=== PATIENT | female | born 1970 | race Caucasian/White ===

== ENCOUNTER 2016-12-24 21:49 | Emergency (ER) | payer OTHER ==
--- NOTE | 2016-12-24 22:04 | ED NURSING NOTES ---
Clinical Report - Nurses [facility] [address] [place] [address] 12/24/2016 21:49 Patient: RENITA GR TRIAGE Triage time 21:52 Dec 24 2016. Acuity: LEVEL 4. Chief Complaint: DRUG OVERDOSE. --21:57 Jordy Virk R.N. 21:51 12/24/16. BP: 119/52. HR: 127. RR: 22. O2 saturation: 99%. Temp: 99 F. Pain level now 0/10. --21:57 Jordy Virk R.N. Weight: 113.3 kg. Height/Length: 65 inches. BMI: 41.6. --21:56 Jordy Virk R.N. Medications Estradiol Oral (Tablet 2 mg) 1 tablet, daily. Gabapentin Oral (Tablet 600 mg) 3 tablets , at bedtime. --21:55 Jordy Virk R.N. Imitrex Oral (Tablet 100 mg), as needed. Levothyroxine Sodium Oral 125 mcg, daily. --21:55 Jordy Virk R.N. [place] Oral 300mg x2 at bedtime. Propranolol 60mg daily. Vitamin D x1 weekly. --21:55 Jordy Virk R.N. Allergies Amoxicillin. Cephalexin. Tracey. PredniSONE. Reglan. Vicoden. --21:55 Jordy Virk R.N. History Arrived by EMS. ( Pt took thc oil, she says this feels similar to a bad reaction she had to regalan in the past). No loss of consciousness. No depression, suicidal thoughts or seizure. Denies having hallucinations. 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 SOCIAL HX: Never smoker. History of drug use: marijuana. No alcohol use. --21:57 Jordy Virk R.N. PROBLEMS: Alcohol abuse. Muscle Strain, Upper Extremity. Peptic Ulcer Disease. Abdominal Pain. Seizure Disorder. Vomiting. Hypertension. Bipolar Disorder. Drug Poisoning. Suicide Attempt. Immunizations. LNMP - Last Normal Menstrual Period. Migraine Headache. Depression. --21:55 Jordy Virk R.N. ADDITIONAL SURGERIES: Ankle Surgery . Back Surgery. Breast reduction . Carpal Tunnel Surgery. Cholecystectomy. Gastric by-pass. Hysterectomy. Knee Surgery. Oophorectomy. Salpingectomy. --21:55 Jordy Virk R.N. Interventions ID and allergy band on patient. To treatment room. --21:57 Jordy Virk R.N. PHYSICAL ASSESSMENT GENERAL / NEURO / PSYCH: Alert. Oriented X 4. Appears anxious. Patient appears calm and cooperative. Speech within normal limits. RESPIRATORY: Respirations not labored. Breath sounds within normal limits. CVS: Normal sinus rhythm noted. SKIN: Skin is warm and dry. Affect appears within normal limits. --22:00 Jordy Virk R.N. NURSING PROGRESS NOTES Pulse oximeter placed on patient. Patient not gowned. Two patient identifiers checked. Call light placed in reach. Side rails up x 1. Bed placed in lowest position. Brakes of bed on. --22:00 Jordy Virk R.N. 22:05 12/24/16. BP: 136/81. --22:06 Jordy Virk R.N. 22:06 12/24/16. HR: 110. O2 saturation: 100%. --22:06 Jordy Virk R.N. DISPOSITION / DISCHARGE Departure time: 2219. Condition at departure: improved. No learning barriers present. Discharge instructions provided and reviewed with the patient and family. Patient and family verbalized understanding. Written instructions provided in Slovak. The patient was discharged by the nurse practitioner. She was discharged home and accompanied by family. She left the Emergency Department ambulatory and via private vehicle. Family member driving. ( Pt ambulated on discharge, verbalized understanding of discharge instructions and follow up care. Pt left with family as her transportation.). --22:22 Jordy Virk R.N. 22:20 12/24/16. BP: 145/110. HR: 111. RR: 20. O2 saturation: 99%. Temp: 99 F. Pain level now 5/10. --22:22 Jordy Virk R.N. Locked/Released at 12/25/2016 20:19 by Jordy Virk R.N.
--- NOTE | 2016-12-24 22:04 | ED CLINICAL REPORT ---
Clinical Report - Physicians/Mid Levels [facility] [address] [place] [address] 12/24/2016 21:49 Patient: RENITA GR Time Seen: 2150; upon arrival, initial patient contact, initial documentation, patient care assumed. Arrived- By ambulance. Historian- patient. HISTORY OF PRESENT ILLNESS Chief Complaint: INGESTION. ( marijuana oil). 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 ( using pedi ingestion t-sheet, due to no adult ingestion sheet). Initially, she did not exhibit any symptoms. Symptoms described as moderate. The patient had no treatment prior to arrival. ( took 1/10 of marijuana oil around 1930, and now feels anxious, shaky, and feels the same as when she has a panic attack). No toxic symptoms present in the ED. Recent medical care: Not recently seen/assessed. REVIEW OF SYSTEMS All systems otherwise negative, except as recorded above. PAST HISTORY See nurses notes. PROBLEMS: Alcohol abuse. Muscle Strain, Upper Extremity. Peptic Ulcer Disease. Abdominal Pain. Seizure Disorder. Vomiting. Hypertension. Bipolar Disorder. Drug Poisoning. Suicide Attempt. Immunizations. LNMP - Last Normal Menstrual Period. Migraine Headache. Depression. --21:55 Jordy Virk, R.N. ADDITIONAL SURGERIES: Ankle Surgery . Back Surgery. Breast reduction . Carpal Tunnel Surgery. Cholecystectomy. Gastric by-pass. Hysterectomy. Knee Surgery. Oophorectomy. Salpingectomy. --21:55 Jordy Virk, R.N. SOCIAL HISTORY Never smoker. History of occasional drug use: marijuana. Not exposed to second-hand smoke at home. No alcohol use. Is a local resident. FAMILY HISTORY Negative. ADDITIONAL NOTES The nursing notes have been reviewed with agreement regarding the chief complaint, HPI, ROS, PMH and patient medications and allergies. PHYSICAL EXAM Vital Signs: 12/24/2016 21:51 BP: 119/52. HR: 127. RR: 22. O2 saturation: 99%. Temp: 99 F. Have been reviewed as normal and appear to be correct. Appearance: Alert alert. Oriented X3. No acute distress. Attentive. ( anxious). Eyes: Pupils equal, round and reactive to light. Conjunctivae and eyelids normal. Neck: Neck supple. No neck mass. CVS: Normal heart rate and rhythm. Strong peripheral pulses. Heart sounds normal. Respiratory: No respiratory distress. Breath sounds normal. Back: Normal inspection. Skin: Skin warm and dry. Normal skin color. No rash. Normal skin turgor. Extremities: Normal range of motion in extremities. Extremities nontender. Extremities atraumatic. Neuro: Mental status is normal for the patient's age. No motor deficit or sensory deficit. PROGRESS AND PROCEDURES Course of Care: encouraged pt to not take or use marijuana oil anymore pt has brief erum, nothing alarming, see report for full details. Patient counseled in person regarding the patient's stable condition and diagnosis. 22:04. Differential Diagnosis: Other possible considerations: substance abuse, anxiety, panic attacks, psych. Above considerations are based on history and physical exam. Differential diagnosis was discussed with patient. Disposition: Discharged home in good and improved condition (22:04). Condition: good and stable. CLINICAL IMPRESSION Intentional ingestion of marijuana. Anxiety reaction. INSTRUCTIONS (return if worsening symptoms). Follow-up: Follow up with your doctor in about two days as needed. Call for an appointment. Summary of care provided to patient. Understanding of the discharge instructions verbalized by patient. (Electronically signed by Nicole Christian A.R.N.P. 12/24/2016 22:26)
--- NOTE | 2016-12-24 22:04 | ED CLINICAL REPORT ---
Clinical Report - Physicians/Mid Levels [facility] [address] [place] [address] 12/24/2016 21:49 Patient: RENITA GR Time Seen: 2150; upon arrival, initial patient contact, initial documentation, patient care assumed. Arrived- By ambulance. Historian- patient. HISTORY OF PRESENT ILLNESS Chief Complaint: INGESTION. ( marijuana oil). 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 ( using pedi ingestion t-sheet, due to no adult ingestion sheet). Initially, she did not exhibit any symptoms. Symptoms described as moderate. The patient had no treatment prior to arrival. ( took 1/10 of marijuana oil around 1930, and now feels anxious, shaky, and feels the same as when she has a panic attack). No toxic symptoms present in the ED. Recent medical care: Not recently seen/assessed. REVIEW OF SYSTEMS All systems otherwise negative, except as recorded above. PAST HISTORY See nurses notes. PROBLEMS: Alcohol abuse. Muscle Strain, Upper Extremity. Peptic Ulcer Disease. Abdominal Pain. Seizure Disorder. Vomiting. Hypertension. Bipolar Disorder. Drug Poisoning. Suicide Attempt. Immunizations. LNMP - Last Normal Menstrual Period. Migraine Headache. Depression. --21:55 Jordy Virk, R.N. ADDITIONAL SURGERIES: Ankle Surgery . Back Surgery. Breast reduction . Carpal Tunnel Surgery. Cholecystectomy. Gastric by-pass. Hysterectomy. Knee Surgery. Oophorectomy. Salpingectomy. --21:55 Jordy Virk, R.N. SOCIAL HISTORY Never smoker. History of occasional drug use: marijuana. Not exposed to second-hand smoke at home. No alcohol use. Is a local resident. FAMILY HISTORY Negative. ADDITIONAL NOTES The nursing notes have been reviewed with agreement regarding the chief complaint, HPI, ROS, PMH and patient medications and allergies. PHYSICAL EXAM Vital Signs: 12/24/2016 21:51 BP: 119/52. HR: 127. RR: 22. O2 saturation: 99%. Temp: 99 F. Have been reviewed as normal and appear to be correct. Appearance: Alert alert. Oriented X3. No acute distress. Attentive. ( anxious). Eyes: Pupils equal, round and reactive to light. Conjunctivae and eyelids normal. Neck: Neck supple. No neck mass. CVS: Normal heart rate and rhythm. Strong peripheral pulses. Heart sounds normal. Respiratory: No respiratory distress. Breath sounds normal. Back: Normal inspection. Skin: Skin warm and dry. Normal skin color. No rash. Normal skin turgor. Extremities: Normal range of motion in extremities. Extremities nontender. Extremities atraumatic. Neuro: Mental status is normal for the patient's age. No motor deficit or sensory deficit. PROGRESS AND PROCEDURES Course of Care: encouraged pt to not take or use marijuana oil anymore pt has brief erum, nothing alarming, see report for full details. Patient counseled in person regarding the patient's stable condition and diagnosis. 22:04. Differential Diagnosis: Other possible considerations: substance abuse, anxiety, panic attacks, psych. Above considerations are based on history and physical exam. Differential diagnosis was discussed with patient. Disposition: Discharged home in good and improved condition (22:04). Condition: good and stable. CLINICAL IMPRESSION Intentional ingestion of marijuana. Anxiety reaction. INSTRUCTIONS (return if worsening symptoms). Follow-up: Follow up with your doctor in about two days as needed. Call for an appointment. Summary of care provided to patient. Understanding of the discharge instructions verbalized by patient. (Electronically signed by Nicole Christian A.R.N.P. 12/24/2016 22:26)
--- NOTE | 2016-12-24 22:04 | ED NURSING NOTES ---
Clinical Report - Nurses [facility] [address] [place] [address] 12/24/2016 21:49 Patient: RENITA GR TRIAGE Triage time 21:52 Dec 24 2016. Acuity: LEVEL 4. Chief Complaint: DRUG OVERDOSE. --21:57 Jordy Virk R.N. 21:51 12/24/16. BP: 119/52. HR: 127. RR: 22. O2 saturation: 99%. Temp: 99 F. Pain level now 0/10. --21:57 Jordy Virk R.N. Weight: 113.3 kg. Height/Length: 65 inches. BMI: 41.6. --21:56 Jordy Virk R.N. Medications Estradiol Oral (Tablet 2 mg) 1 tablet, daily. Gabapentin Oral (Tablet 600 mg) 3 tablets , at bedtime. --21:55 Jordy Virk R.N. Imitrex Oral (Tablet 100 mg), as needed. Levothyroxine Sodium Oral 125 mcg, daily. --21:55 Jordy Virk R.N. [place] Oral 300mg x2 at bedtime. Propranolol 60mg daily. Vitamin D x1 weekly. --21:55 Jordy Virk R.N. Allergies Amoxicillin. Cephalexin. Tracey. PredniSONE. Reglan. Vicoden. --21:55 Jordy Virk R.N. History Arrived by EMS. ( Pt took thc oil, she says this feels similar to a bad reaction she had to regalan in the past). No loss of consciousness. No depression, suicidal thoughts or seizure. Denies having hallucinations. 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 SOCIAL HX: Never smoker. History of drug use: marijuana. No alcohol use. --21:57 Jordy Virk R.N. PROBLEMS: Alcohol abuse. Muscle Strain, Upper Extremity. Peptic Ulcer Disease. Abdominal Pain. Seizure Disorder. Vomiting. Hypertension. Bipolar Disorder. Drug Poisoning. Suicide Attempt. Immunizations. LNMP - Last Normal Menstrual Period. Migraine Headache. Depression. --21:55 Jordy Virk R.N. ADDITIONAL SURGERIES: Ankle Surgery . Back Surgery. Breast reduction . Carpal Tunnel Surgery. Cholecystectomy. Gastric by-pass. Hysterectomy. Knee Surgery. Oophorectomy. Salpingectomy. --21:55 Jordy Virk R.N. Interventions ID and allergy band on patient. To treatment room. --21:57 Jordy Virk R.N. PHYSICAL ASSESSMENT GENERAL / NEURO / PSYCH: Alert. Oriented X 4. Appears anxious. Patient appears calm and cooperative. Speech within normal limits. RESPIRATORY: Respirations not labored. Breath sounds within normal limits. CVS: Normal sinus rhythm noted. SKIN: Skin is warm and dry. Affect appears within normal limits. --22:00 Jordy Virk R.N. NURSING PROGRESS NOTES Pulse oximeter placed on patient. Patient not gowned. Two patient identifiers checked. Call light placed in reach. Side rails up x 1. Bed placed in lowest position. Brakes of bed on. --22:00 Jordy Virk R.N. 22:05 12/24/16. BP: 136/81. --22:06 Jordy Virk R.N. 22:06 12/24/16. HR: 110. O2 saturation: 100%. --22:06 Jordy Virk R.N. DISPOSITION / DISCHARGE Departure time: 2219. Condition at departure: improved. No learning barriers present. Discharge instructions provided and reviewed with the patient and family. Patient and family verbalized understanding. Written instructions provided in Latvian. The patient was discharged by the nurse practitioner. She was discharged home and accompanied by family. She left the Emergency Department ambulatory and via private vehicle. Family member driving. ( Pt ambulated on discharge, verbalized understanding of discharge instructions and follow up care. Pt left with family as her transportation.). --22:22 Jordy Virk R.N. 22:20 12/24/16. BP: 145/110. HR: 111. RR: 20. O2 saturation: 99%. Temp: 99 F. Pain level now 5/10. --22:22 Jordy Virk R.N. Locked/Released at 12/25/2016 20:19 by Jordy Virk R.N.
--- NOTE | 2016-12-25 20:19 | ED MAR SUMMARY ---
..... Medication Administration Record [facility] [address] [place] [address] Patient: RENITA GR Visit ID: [id number] 46y, F Weight: 113.3 kg Height/Length: 65 in BMI: 41.6 ALLERGIES: Amoxicillin, Cephalexin, Tracey, PredniSONE, Reglan, Vicoden
--- NOTE | 2016-12-25 20:19 | ED MED RECONCILIATION SUMMARY ---
Patient: RENITA GR Medication Reconciliation Report [facility] VisitID: [id number] [address] [place] [address] 46y, F Registration Date/Time: 12/24/2016 Weight: 113.3 kg Height/Length: 65 in. BMI: 41.6 ALLERGIES: Amoxicillin, Cephalexin, Tracey, PredniSONE, Reglan, Vicoden The patient's Home Medications are listed below: THE FOLLOWING MEDICATIONS NEED TO BE RECONCILED: Estradiol Oral (2 mg) 1 tablet, daily Gabapentin Oral (600 mg) 3 tablets , at bedtime Imitrex Oral (100 mg) Levothyroxine Sodium Oral 125 mcg, daily [place] Oral 300mg x2 at bedtime Propranolol 60mg daily Vitamin D x1 weekly The source(s) of the original Home Medication information: Not obtained. The following Medications were given to the patient in the Emergency Department: None. The following Medications were prescribed to the patient: None.
--- NOTE | 2016-12-25 20:19 | ED MAR SUMMARY ---
..... Medication Administration Record [facility] [address] [place] [address] Patient: RENITA GR Visit ID: [id number] 46y, F Weight: 113.3 kg Height/Length: 65 in BMI: 41.6 ALLERGIES: Amoxicillin, Cephalexin, Tracey, PredniSONE, Reglan, Vicoden
--- NOTE | 2016-12-25 20:19 | ED MED RECONCILIATION SUMMARY ---
Patient: RENITA GR Medication Reconciliation Report [facility] VisitID: [id number] [address] [place] [address] 46y, F Registration Date/Time: 12/24/2016 Weight: 113.3 kg Height/Length: 65 in. BMI: 41.6 ALLERGIES: Amoxicillin, Cephalexin, Tracey, PredniSONE, Reglan, Vicoden The patient's Home Medications are listed below: THE FOLLOWING MEDICATIONS NEED TO BE RECONCILED: Estradiol Oral (2 mg) 1 tablet, daily Gabapentin Oral (600 mg) 3 tablets , at bedtime Imitrex Oral (100 mg) Levothyroxine Sodium Oral 125 mcg, daily [place] Oral 300mg x2 at bedtime Propranolol 60mg daily Vitamin D x1 weekly The source(s) of the original Home Medication information: Not obtained. The following Medications were given to the patient in the Emergency Department: None. The following Medications were prescribed to the patient: None.
--- NOTE | 2016-12-25 20:19 | ED DISCHARGE INSTRUCTIONS ---
Patient: RENITA GR General Instructions [facility] VisitID: [id number] [place] [address] 46y, F Registration Date/Time: 12/24/2016 Intentional ingestion of marijuana. Anxiety reaction. INSTRUCTIONS (return if worsening symptoms). Follow-up: Follow up with your doctor in about two days as needed. Call for an appointment. Summary of care provided to patient. Understanding of the discharge instructions verbalized by patient. ADDITIONAL INFORMATION Overdose, Intentional (Adult: Psych Evaluation) You have been evaluated and treated for taking a drug or chemical product with the intent to harm yourself. There is no sign of a toxic effect at this time. It is not likely that any new symptoms will appear. As a safeguard, watch for new symptoms during the next 24 hours (see below). The exact symptom will depend on the type of drug or chemical taken. An intentional overdose is likely to be a sign that you are depressed, or that you are very angry with yourself or someone else. In order to reduce the risk of harming yourself, we will arrange for you to have a psychiatric evaluation. Home Care: If LIQUID CHARCOAL was given to neutralize what was swallowed, it will cause a black color to the stools for 1-2 days. Usually, a laxative (sorbitol) is given with charcoal to speed the removal of any toxins from the intestinal tract. This may cause diarrhea for up to 24 hours. If no laxative was given with charcoal, you may get constipated. If this occurs, you may take an [id number] laxative such as Dulcolax pills or suppository. Follow Up with your doctor if all symptoms do not resolve within 24 hours or if constipation is not relieved by one or two doses of laxatives. If you are being discharged for immediate evaluation at a psychiatric hospital or clinic on a voluntary basis, you must go directly there with a responsible adult. If you have been placed on a legal 72 hour psychiatric hold, a ride to a psychiatric facility will be arranged for you. Get Prompt Medical Attention if any of the following occur: Excess drowsiness or inability to be awakened Rapid heart beat, you feel shaky, or you have a seizure Fast breathing (over 25 breaths/minute) or slow breathing (less than 8 breaths/minute) Feeling shortness of breath Fever of 100.4F (38C) or higher, or as directed by your healthcare provider Vomiting or diarrhea for more than 24 hours Blood in stools or vomit (black or red color) Chest or abdominal pain Dizziness, weakness or fainting Thoughts of harming yourself again Stress Reaction Anxiety is the feeling we all get when we think something bad might happen. It is a normal response to stress and usually causes only a mild reaction. When anxiety becomes more severe, emotions may interfere with daily life. In some cases, you may not even be aware of what it is youre anxious about! During an anxiety reaction, you may feel like you are helpless, nervous, depressed or irritable. Your body may show signs of anxiety in many ways. You may experience dry mouth, shakiness, dizziness, weakness, trouble breathing, chest pressure, headache, nausea, diarrhea, tiredness, inability to sleep or sexual problems. Home Care: 1) Try to locate the sources of stress in your life. They may not be obvious! These may include: -- Daily hassles of life which pile up (traffic jams, missed appointments, car troubles, etc.) -- Major life changes, both good (new baby, job promotion) and bad (loss of job, loss of loved one) -- Overload: feeling that you have too many responsibilities and can't take care of all of them at once -- Feeling helpless, feeling that your problems are beyond what youre able to solve 2) Notice how your body reacts to stress. Learn to listen to your body signals. This will help you take action before the stress becomes severe. 3) When you can, do something about the source of your stress. (Avoid hassles, limit the amount of change that happens in your life at one time and take a break when you feel overloaded). 4) Unfortunately, many stressful situations cannot be avoided. It is necessary to learn HOW TO MANAGE STRESS better. There are many proven methods that will reduce your anxiety. These include simple things like exercise, good nutrition and adequate rest. Also, there are certain techniques that are helpful: relaxation and breathing exercises, visualization, biofeedback and meditation. For more information about this, consult your doctor or go to a local bookstore and review the many books and tapes available on this subject. Follow Up If you feel that your anxiety is not responding to self-help measures, contact your doctor or make an appointment with a counselor. Get Prompt Medical Attention if any of the following occur: -- Your symptoms get worse -- Chest pain or trouble breathing -- Severe headache not relieved by rest and mild pain reliever -- Rapid or irregular heartbeat, fainting Panic Attack A panic attack is an extreme fear reaction that comes on for no apparent reason. Symptoms may include pounding or racing heartbeat, shortness of breath, dizziness, weakness and sweating. There is usually a fear that something terrible will happen or that you may . The attack may last a few minutes up to a few hours. Between attacks things will seem quite normal. This condition has a psychological cause and can be treated with the help of a therapist or psychiatrist. Medication is often used and can be very helpful for this problem. Home Care: Try to identify the sources of stress in your life. It may not be obvious! These may include: Daily hassles of life which pile up (traffic jams, missed appointments, car troubles, etc.). Major life changes, both good (new baby, job promotion) and bad (loss of job, loss of loved one). Overload: feeling that you have too many responsibilities and can't take care of everything at once. Helplessness: feeling like your problems are too much for you to handle. Notice how your body reacts to stress. Learn to listen to your body signals so that you can take action before the stress becomes severe. When possible, AVOID or REDUCE THE CAUSE OF STRESS. Avoid hassles, limit the amount of change that is happening in your life at one time or take a break when you feel overloaded. Unfortunately, many stressful situations cannot be avoided. Therefore, it is necessary to LEARN HOW TO MANAGE STRESS better. There are many proven methods that work and will reduce your anxiety. These include simple things like exercise, good nutrition and adequate rest. Also, there are certain techniques that are helpful: relaxation and breathing exercises, visualization, biofeedback, meditation or simply taking some time-out to clear your mind. For more information about this, consult your doctor or go to a local bookstore and review the many books and tapes available on this subject. Follow Up with your doctor or a therapist as advised. Get Prompt Medical Attention if any of the following occur: Worsening of your symptoms to the point of feeling [id number]-[id number] A change in the type of pain: if it feels different, becomes more severe, lasts longer, or begins to spread into your shoulder, arm, neck, jaw or back Shortness of breath or increased pain with breathing Increasing feeling of weakness or dizziness Fainting Cough with dark colored sputum (phlegm) or blood Fever of 100.4F (38C) or higher, or as directed by your healthcare provider Swelling, pain or redness in one leg You have been given the following additional information: Overdose, Intentional (Adult) Anxiety Reaction Panic Attack (Electronically signed by Nicole Christian A.R.N.P. 12/24/2016 22:26)
== END 2016-12-24 22:20 | disposition home or self-care (01) ==
LOC: ED SRH 21:49
DX: Y92.9 Unspecified place or not applicable (principal); F12.980 Cannabis use, unspecified with anxiety disorder; F41.1 Generalized anxiety disorder; I10 Essential (primary) hypertension; Z79.899 Other long term (current) drug therapy; Z88.0 Allergy status to penicillin; Z88.5 Allergy status to narcotic agent; Z88.8 Allergy status to other drugs, medicaments and biological substances; Z91.048 Other nonmedicinal substance allergy status